=== PATIENT | female | born 1995 | race Caucasian/White ===

== ENCOUNTER → 2018-11-11 | Outpatient (CLI) | LOC: LABNPT 16:11 | PROVIDERS: ATTEND Obstetrics & Gynecology | DX: O28.8 Other abnormal findings on antenatal screening of mother (principal); Z3A.00 Weeks of gestation of pregnancy not specified | CPT/HCPCS: 82570; 84156 ==

== ENCOUNTER 2018-11-21 08:16 | Inpatient (IN) | payer MEDICAID ==
[2018-11-21] VITALS (54 sets, daily range): BP systolic 98–143; BP diastolic 55–86
[~2018-11-21] VITALS: Ht 172.7 cm; Wt 127.0 kg
--- NOTE | 2018-11-21 08:16 | NUR ---
TANYA FULTON presented to unit via AMBULATORY from HOME, accompanied by VISITOR FOR INDUCTION OF LABOR. TANYA FULTON weighed, gowned, voided, and to bed. EFHM and TOCO applied, VS taken. TANYA FULTON oriented to bed controls, call light, TV, heat, and A/C controls.
[2018-11-21] MEDS ORDERED: AMPICILLIN FOR IV USE 2,000 MG in WATER (STERILE) FOR INJECTION 14.8 ML IV SCH (08:39)
[2018-11-21] MEDS ORDERED: D5 LR IV SOLUTION 1,000 ML IV ONE (08:44)
[2018-11-21] MEDS ORDERED: AMPICILLIN FOR IV USE 2,000 MG VIAL ONE (08:44)
[2018-11-21] MEDS ORDERED: WATER (STERILE) FOR INJECTION 20 ML ONE (08:45)
[2018-11-21] MEDS: D5 LR IV SOLUTION 1,000 ML IV SCH ×2 (09:00→16:19)
[2018-11-21 09:35] LABS: BASOPHILS % (AUTO) 0 % (0-10); EOSINOPHILS # (AUTO) 0.1 10^3/uL (0.0-0.3); EOSINOPHILS % (AUTO) 2 % (0-10); HEMATOCRIT 31 % (35-52); HEMOGLOBIN 9.4 G/DL (11.5-16.0); LYMPHOCYTES # (AUTO) 1.4 X 10^3 (1.0-4.0); LYMPHOCYTES % (AUTO) 18 % (12-44); MEAN CORPUSCULAR HEMOGLOBIN 23 PG (25-34); MEAN CORPUSCULAR HGB CONC 30 G/DL (32-36); MEAN CORPUSCULAR VOLUME 77 FL (80-99); MEAN PLATELET VOLUME 9.5 FL (7.4-10.4); MONOCYTES # (AUTO) 0.9 X 10^3 (0.0-1.0); MONOCYTES % (AUTO) 11 % (0-12); NEUTROPHILS # (AUTO) 5.6 X 10^3 (1.8-7.8); NEUTROPHILS % (AUTO) 70 % (42-75); PLATELET COUNT 438 10^3/uL (130-400); RED CELL DISTRIBUTION WIDTH 14.9 % (10.0-14.5); WHITE BLOOD COUNT 8.1 10^3/uL (4.3-11.0)
[2018-11-21] MEDS ORDERED: OXYTOCIN/NORMAL SALINE 500 ML IV SCH ×2 (12:17→21:14)
[2018-11-21] MEDS ORDERED: OXYTOCIN/NORMAL SALINE 500 ML IV ONE (12:19)
--- NOTE | 2018-11-21 12:20 | History & Physical ---
History and Physical Date Seen by Provider: Nov 21, 2018 Time Seen by Provider: 12:18 This patient is a 22-year-old white female who transferred her care to [place] in the second trimester . She is admitted now for induction at 39+ weeks' gestation with LGA fetus expected over 9 pounds and polyhydramnios with last GERSON yesterday at 276. Her GBS culture after 35 weeks gestation was positive. She will be on prophylactic antibiotics during the labor she denies rupture membranes or bleeding. She's had no other problems with this . Allergies are none Medications are vitamins Medical, social and surgical histories are per the antepartum record HEENT exam is normal Neck is supple no lymphadenopathy no thyromegaly Abdomen is gravid soft nontender nondistended Extremities show no clubbing cyanosis. There is no Homans sign. Pelvic exam is pending Assessment and plan 39+ week gestation in patient with GBS positive culture admitted for induction of labor history of polyhydramnios Allergies and Home Medications Allergies Coded Allergies: No Known Drug Allergies (Unverified , 11/21/18) Home Medications No Active Prescriptions or Reported Meds Patient Home Medication List Home Medication List Reviewed: Yes Clinical Quality Measures DVT/VTE Risk/Contraindication: Risk Factor Score Per Nursin RFS Level Per Nursing on Admit: 3=High JUAN J COHN MD Nov 21, 2018 12:20
[2018-11-21] MEDS ORDERED: IBUP-1780 PO (12:22)
[2018-11-21] MEDS ORDERED: OXYC1TAB87 PO (12:22)
[2018-11-21] MEDS ORDERED: DOCU-143 PO (12:22)
--- NOTE | 2018-11-21 12:22 | Discharge Instructions ---
Discharge Instructions Discharge Medications New, Converted or Re-Newed RX: RX on Chart Patient Instructions Return to The Hospital For: As directed Activity & Diet Discharge Diet: No Restrictions Activity as Tolerated: No Orders-Post D/C & Referrals Follow Up Appt: Call to make follow up appt. for patient in 4 weeks. Activity Per routine post vaginal delivery instructions. Please call in RX to patient pharmacy. Diet as tolerated Patient may shower or tub bathe as desired. JUAN J COHN MD Nov 21, 2018 12:22
[2018-11-21] MEDS: AMPICILLIN FOR IV USE 1,000 MG in WATER (STERILE) FOR INJECTION 7.4 ML IV SCH ×2 (13:26→17:44)
[2018-11-21] MEDS ORDERED: SUFENTA 0.6MCG/ML BUPIVA 0.125 100 ML ONE (15:09)
--- NOTE | 2018-11-21 15:31 | NUR ---
Bailey WAHL CRNA here for epidural placement. Procedure explained, consent reviewed and signed by anesthesia. Questions answered to patient's satisfaction. Time out taken to verify correct patient/procedure. 1534 Patient up to side of bed, assisted into sitting position. 1538 Betadine prep done x3 and sterile drape applied. 1539 Local done, see anesthesia record. 1542 Test dose given, see anesthesia record for drug and dosage. 1542 Test dose given, see anesthesia record for drug and dosage.Epidural catheter secured in place. Epidural placement complete. Assisted back into bed, monitors adjusted. Epidural dosed, see anesthesia record. Epidural of Sufenta/Bupvicaine @ cc/hr stated per pump. Patient tolerated procedure well. Addendum: 11/21/18 at 1708 by SWATI VARNER RN 1545 TEST DOSE 1549 TEST DOSE #2. --- + RESULT. CATHETER REMOVED PER Bailey WAHL CRNA
[2018-11-21] MEDS ORDERED: LIDOCAINE PF 2% 5 ML (XYLOCAINE) VIAL ONE (15:34)
[2018-11-21] MEDS ORDERED: BUPIVACAINE 0.25% 30 ML (SENSORCAINE) VIAL ONE (15:34)
[2018-11-21] MEDS ORDERED: fentaNYL INJECTION 100 MCG/2 ML AMP ONE (15:34)
--- NOTE | 2018-11-21 15:51 | NUR ---
EPIDURAL #2. 1551 Betadine prep done x3 and sterile drape applied. 1553 Local done, see anesthesia record. 1557 Test dose given, see anesthesia record for drug and dosage. 1559 Test dose #2 given, see anesthesia record for drug and dosage. Epidural catheter secured in place. Epidural placement complete. 1600 Assisted back into bed, monitors adjusted. Epidural dosed, see anesthesia record. Epidural of Sufenta/Bupvicaine @12cc/hr stated per pump. Patient tolerated procedure well.
[2018-11-21] MEDS ORDERED: LACTATED RINGERS 1,000 ML IV ONE ×2 (16:10)
[2018-11-21] MEDS ORDERED: ONDANSETRON 4 MG/2 ML (SDV) Z0FRAN IV PRN (16:15)
[2018-11-21] MEDS ORDERED: EPIDURAL (SUFENTA 0.6MCG/ML BUPIVA 0.125%) 100 ML BAG EPI PRN (16:15)
[2018-11-21] MEDS ORDERED: NALOXONE 0.4 MG/ML 1 ML (NARCAN) VIAL IV PRN (16:15)
--- NOTE | 2018-11-21 19:00 | NUR ---
REFER TO LABOR FLOW SHEET.
[2018-11-21] MEDS ORDERED: LIDOCAINE/EPI 2% 1:200,00 (XYLOCAINE) 10 ML VIAL ONE (20:08)
[2018-11-21] MEDS ORDERED: TETANUS,DIPTH,PERTUSS P/F (BOOSTRIX) 0.5 ML VIAL IM ONE (21:15)
[2018-11-21] MEDS ORDERED: ONDANSETRON 4 MG/2 ML (SDV) Z0FRAN IVP PRN (21:15)
[2018-11-21] MEDS ORDERED: BENZOCAINE/MENTHOL (DERMOPLAST) 56 ML CAN TP PRN (21:15)
[2018-11-21] MEDS ORDERED: MEASLES,MUMPS,RUBELLA 1 EA INJ SC ONE (21:15)
[2018-11-21] MEDS ORDERED: KETOROLAC 30 MG/ML VIAL ONE (21:23)
[2018-11-21] MEDS: KETOROLAC 30 MG/ML VIAL IVP PRN (21:25)
--- NOTE | 2018-11-21 22:05 | NUR ---
Pt. ambulated to bathroom with standby assist without difficulty. Positive void noted. Will move to PP room 309 soon.
--- NOTE | 2018-11-21 22:15 | NUR ---
Pt. transferred to room 309 via wheelchair, accompanied by S.O. and infant. Pt. oriented to room, room service, call light, and thermostat. PP info folder given and explain. Fresh ice water provided. No questions or concerns voiced at this time. Call light within reach.
[2018-11-21] MEDS: oxyCODONE/APAP 5/325MG (PERCOCET 5) TABLET PO PRN (23:14)
[2018-11-21] MEDS: CATHETER FLUSH 10 ML SYR IV SCH ×2 (23:15→23:31)
[2018-11-21] MEDS ORDERED: LIDOCAINE/EPI 2% 1:200,00 (XYLOCAINE) 10 ML VIAL INJ ONE (23:30)
--- NOTE | 2018-11-22 03:36 | OPERATIVE REPORT ---
DATE OF SERVICE: 11/21/2018 DELIVERY NOTE The patient delivered by a term spontaneous vaginal delivery a viable male infant with Apgars of 8 and 9 at 1 and 5 minutes respectively, weight of 9 pounds and 2 ounces, time of 2041. Cord blood pH that is pending. The infant delivered over a first-degree perineal and first-degree right labia majora laceration under epidural analgesia augmented with local in the perineum. The infant was bulb suctioned on delivery of the head and again on completion of delivery. Umbilical cord when relatively pulseless was doubly clamped, father cut the cord, the baby was passed to mom's abdomen. The placenta delivered promptly spontaneously Barron. It was normal with a 3-vessel cord. The cervix, vagina, rectum, and perineum were examined and found intact, except for the two defects noted above. Both those defects were repaired with a single suture of 3-0 Vicryl Rapide in the usual manner to good reapproximation and good hemostasis. The patient tolerated the delivery and the repair well and remained in the LDR for recovery. The baby remained with the mom. Sponge and needle counts were correct. Estimated blood loss was around 250 mL for the delivery. Job ID: [id number] DocumentID: [id number] Dictated Date: 11/21/2018 21:04:14 Prosthetic Assistant Date: 11/22/2018 03:35:10 Dictated By: JUAN J COHN MD
[2018-11-22 03:40] VITALS: BP 119/70
[2018-11-22] MEDS: KETOROLAC 30 MG/ML VIAL IVP PRN (03:45)
[2018-11-22] MEDS: CATHETER FLUSH 10 ML SYR IV SCH (06:15)
[2018-11-22 08:19] VITALS: BP 110/67
[2018-11-22] MEDS: IBUPROFEN 800 MG (MOTRIN) TAB PO SCH ×3 (08:20→20:07)
[2018-11-22] MEDS: DOCUSATE SODIUM 100 MG (COLACE) CAP PO SCH ×2 (08:20→20:07)
[2018-11-22] MEDS: oxyCODONE/APAP 5/325MG (PERCOCET 5) TABLET PO PRN ×2 (08:22→12:22)
--- NOTE | 2018-11-22 09:15 | NUR ---
Dr Russo to see patient and review plan of care.
--- NOTE | 2018-11-22 09:26 | Progress Note ---
Standard Progress Note Progress Notes/Assess & Plan Date Seen by a Provider: Nov 22, 2018 Time Seen by a Provider: 09:26 Progress/Assessment & Plan This patient is without complaint. She is ablating, voiding, tolerating oral intake well has good pain control. Vital Signs 11/22/18 08:19 Temp 36.7 Pulse 91 Resp 16 B/P (MAP) 110/67 (81) Pulse Ox 97 O2 Delivery Room Air Vital signs are stable. Patient is afebrile. The abdomen is benign. The fundus is firm below the umbilicus and nontender. Extreme show no clubbing cyanosis. There is no Homans sign. Assessment and plan post day number 1 status post term spontaneous vaginal delivery at 39 weeks gestation. Patient doing well will have routine convalescence. JUAN J COHN MD Nov 22, 2018 09:26
[2018-11-22 12:19] VITALS: BP 119/83
--- NOTE | 2018-11-22 16:29 | Anesthesia-Regional Post-Op ---
Regional Patient Condition Mental Status: Alert, Oriented x3 Circulation: Same as Pre-Op Headache: Absent Sensation: Full Recovery Motor Block: Absent Post Op Complications Complications None Follow Up Care/Instructions Patient Instructions None needed. Anesthesia/Patient Condition Patient is doing well, no complaints, stable vital signs, no apparent adverse anesthesia problems. No complications reported per nursing. DEJON ULLOA CRNA Nov 22, 2018 16:29
[2018-11-22 17:10] VITALS: BP 120/64
[2018-11-22 20:08] VITALS: BP 120/69
[2018-11-23 02:36] VITALS: BP 109/59
[2018-11-23] MEDS: IBUPROFEN 800 MG (MOTRIN) TAB PO SCH ×2 (02:36→09:34)
--- NOTE | 2018-11-23 09:19 | NUR ---
No rubella drawn, pt reports she "will not take rubella vaccine."
--- NOTE | 2018-11-23 09:20 | NUR ---
Dr Blackwell to see patient.
[2018-11-23 09:33] VITALS: BP 108/71
--- NOTE | 2018-11-23 09:33 | Progress Note ---
Standard Progress Note Progress Notes/Assess & Plan Date Seen by a Provider: Nov 23, 2018 Time Seen by a Provider: 09:32 Progress/Assessment & Plan This patient is without complaint. She is ablating, voiding, tolerating oral intake well has good pain control. Vital Signs 11/22/18 08:19 Temp 36.7 Pulse 91 Resp 16 B/P (MAP) 110/67 (81) Pulse Ox 97 O2 Delivery Room Air Vital signs are stable. Patient is afebrile. The abdomen is benign. The fundus is firm below the umbilicus and nontender. Extreme show no clubbing cyanosis. There is no Homans sign. Assessment and plan post day number 1 status post term spontaneous vaginal delivery at 39 weeks gestation. Patient doing well will have routine convalescence. November 23, 2018 Patient without complaint. She is ambulating, voiding, tolerating oral intake well has good pain control. Patient is requesting discharge home. Vital Signs Date Time Temp Pulse Resp B/P (MAP) Pulse Ox O2 Delivery O2 Flow Rate FiO2 11/23/18 02:36 36.5 71 16 109/59 (76) 97 Room Air 11/22/18 20:08 36.7 76 16 120/69 (86) 99 Room Air 11/22/18 17:10 36.8 82 16 120/64 (82) 99 Room Air 11/22/18 12:19 36.5 79 16 119/83 (95) 99 Room Air Vital signs are stable. Patient is afebrile. The fundus is firm below the umbilicus nontender. Extremities show no clubbing cyanosis. There is no Homans sign. Assessment and plan day number 2 status post term spontaneous vaginal delivery at 39+ weeks' gestation. Plan is for discharge home with follow-up in clinic Final Diagnosis 39 week spontaneous vaginal delivery JUAN J COHN MD Nov 23, 2018 09:33
[2018-11-23] MEDS: DOCUSATE SODIUM 100 MG (COLACE) CAP PO SCH (09:35)
--- NOTE | 2018-11-23 13:20 | NUR ---
Discharge instructions explained, signed and copy to patient. pt verbalized understanding of instructions and denied questions. prescription given and explained along with other medications called in to pharmacy. pt verbalized understanding of medications.
--- NOTE | 2018-11-23 13:30 | NUR ---
prescriptions called to [facility]
--- NOTE | 2018-11-23 13:45 | NUR ---
Discharged to home. Ambulates self downstairs accompanied by staff. To private vehicle with belongings in hand.
== END 2018-11-23 13:45 | disposition home or self-care (01) | DRG 807 ==
LOC: LDRP 08:16
PROVIDERS: ADMIT Obstetrics & Gynecology; ATTEND Obstetrics & Gynecology
PROC: 10E0XZZ Delivery of Products of Conception, External Approach (ICD-10-PCS; principal; 2018-11-22)
PROC: 0HQ9XZZ Repair Perineum Skin, External Approach (ICD-10-PCS; 2018-11-22)
PROC: 0UQMXZZ Repair Vulva, External Approach (ICD-10-PCS; 2018-11-22)
DX: O40.3XX0 Polyhydramnios, third trimester, not applicable or unspecified (principal); Z37.0 Single live birth; O36.63X0 Maternal care for excessive fetal growth, third trimester, not applicable or unspecified; O99.824 Streptococcus B carrier state complicating childbirth; O70.0 First degree perineal laceration during delivery; Z3A.39 39 weeks gestation of pregnancy
CPT/HCPCS: 36415; 85025; 86850; 86900; 86901

== ENCOUNTER 2020-07-07 07:10 | Emergency (ER) | payer MEDICAID ==
[~2020-07-07] VITALS: Ht 172.7 cm; Wt 113.6 kg
[~2020-07-07 07:10] MED LIST: DOCU-143 PO; IBUP-1780 PO; OXYC1TAB87 PO
[2020-07-07 07:20] VITALS: BP 133/90
[2020-07-07] MEDS ORDERED: SULF1TAB35 PO (07:54)
--- NOTE | 2020-07-07 07:55 | ED General ---
General Chief Complaint: General Problems/Pain Stated Complaint: POSSIBLE INFECTION FROM STITCHES VAGINAL Nursing Triage Note: AMB TO ED REPORTS HAD VAG DELIVERY 1 YEAR AGO. FEELS LIKE ONE OF THE SUTURES DID NOT DISOLVE. AREA NOW RED OR SWOLLEN NEVER HAD FOLLOW UP . Nursing Sepsis Screen: No Definite Risk Source of Information: Patient Exam Limitations: No Limitations History of Present Illness Date Seen by Provider: July 07, 2020 Time Seen by Provider: 07:18 Initial Comments This 25-year-old young lady presents to the emergency room with complaints of a firm swelling at the site of perineal repair from her vaginal delivery in November. Because of reasons not clearly explained, she did not follow-up after her delivery or have this area evaluated by the delivering physician. Since the healing of her sutured perineal tear, she has noticed a firm lump in that area. Over the last month it has grown rapidly and has become extremely painful. She has pain with movement, palpation, and intercourse. She felt a bit feverish at work recently and noted a temperature of 99.7. She has not noticed any drainage. On exam today she appears to have a cystic lesion that is now drai zacarias a foul purulent material with a scant amount of blood. Allergies and Home Medications Allergies Coded Allergies: No Known Drug Allergies (Unverified , 11/21/18) Home Medications Docusate Sodium 100 Mg Capsule, 100 MG PO BID Prescribed by: JUAN J RAMIREZ on 11/21/18 1222 Ibuprofen 800 Mg Tablet, 800 MG PO Q6H PRN for PAIN Prescribed by: JUAN J RAMIREZ on 11/21/18 1222 Oxycodone HCl/Acetaminophen 1 Each Tablet, 1 TAB PO Q4H Prescribed by: JUAN J RAMIREZ on 11/21/18 1222 Sulfamethoxazole/Trimethoprim 1 Each Tablet, 1 EACH PO BID Prescribed by: MRACE JANG on 07/07/20 3658 Patient Home Medication List Home Medication List Reviewed: Yes Review of Systems Review of Systems Constitutional: see HPI EENTM: no symptoms reported Respiratory: no symptoms reported Gastrointestinal: no symptoms reported Genitourinary: see HPI : No Musculoskeletal: no symptoms reported Skin: see HPI Psychiatric/Neurological: No Symptoms Reported Hematologic/Lymphatic: No Symptoms Reported Immunological/Allergic: no symptoms reported Past Gangmaf-Ijifuc-Xdmrra Hx Past Med/Social Hx: Reviewed Nursing Past Med/Soc Hx Patient Social History Alcohol Use: Denies Use Drug of Choice: MARIJUANA- MIDDLE OF Smoking Status: Never a Smoker Recent Infectious Disease Expo: No Recent Hopitalizations: No Immunizations Up To Date PED Vaccines UTD: Yes Seasonal Allergies Seasonal Allergies: Yes Past Medical History Surgeries: No Respiratory: No Cardiac: No Neurological: No : No Female Reproductive Disorders: Denies Sexually Transmitted Disease: Yes (CHLAMYDIA - 2018) HIV/AIDS: No Genitourinary: No Gastrointestinal: Yes (SONO SHOWED GALL STONES - NOT CAUSING ISSUES) Musculoskeletal: Yes (BULGING DISC) Chronic Back Pain Endocrine: No HEENT: No Cancer: No Psychosocial: No Integumentary: No 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 Physical Exam Vital Signs Vital Signs - First Documented 07/07/20 07:20 Temp 36.8 Pulse 90 Resp 18 B/P (MAP) 133/90 (104) Pulse Ox 98 O2 Delivery Room Air Capillary Refill : Less Than 3 Seconds Height, Weight, BMI Height: '" Weight: lbs. oz. kg; 38.00 BMI Method: General Appearance: No Apparent Distress, WD/WN HEENT: PERRL/EOMI, Normal ENT Inspection Neck: Normal Inspection Respiratory: Lungs Clear, Normal Breath Sounds, No Respiratory Distress Cardiovascular: Regular Rate, Rhythm, No Edema, No Murmur Gastrointestinal: Non Tender, Soft Genital/Rectal: Other (Draining cystic lesion on the right side of the verge of the perineum and vaginal introitus. The pore expressed a large amount of purulent material and sebaceous material was expressed) Extremity: Normal Inspection, No Pedal Edema Neurologic/Psychiatric: Alert, Oriented x3, No Motor/Sensory Deficits, Normal Mood/Affect Skin: Warm/Dry Progress/Results/Core Measures Suspected Sepsis Recent Fever Within 48 Hours: No Infection Criteria Present: None New/Unexplained Altered Menta: No Sepsis Screen: No Definite Risk SIRS Temperature: Pulse: 90 Respiratory Rate: 18 Blood Pressure 133 /90 Mean: 104 Results/Orders Vital Signs/I&O 07/07/20 07:20 Temp 36.8 Pulse 90 Resp 18 B/P (MAP) 133/90 (104) Pulse Ox 98 O2 Delivery Room Air Capillary Refill : Less Than 3 Seconds Blood Pressure Mean: 104 Progress Note : Progress Note By the time of my exam the cystic lesion was starting to drain. It was expressed manually which yielded a large amount of sebaceous material and purule nt drainage. Culture was obtained. Patient tolerated the procedure well with some pain. I contacted Dr. Encarnacion to inform her of the situation and to suggest perhaps an expedited appointment since her current appointment is in August. Patient reported exposure to MRSA from a recent boyfriend. Bactrim was prescribed. She was given a bottle of chlorhexidine soap for sitz baths. Vag inal rest for 2 weeks was recommended. Departure Impression Primary Impression: Vaginal inclusion cyst Additional Impression: Perineal abscess Disposition: HOME, SELF-CARE Condition: Improved Departure-Patient Inst. Referrals: NO,LOCAL PHYSICIAN (PCP/Family) Primary Care Physician Patient Instructions: Skin Abscess Add. Discharge Instructions: Perform sitz bath's for 15 to 30 minutes 2 or 3 times a day for the next few days to encourage drainage. Apply a few squirts of the antibacterial soap provided in the water. Complete your antibiotics as prescribed. Expect the cyst to continue draining for at least a couple of days. You may take Tylenol (acetaminophen) and/or ibuprofen for pain. Follow-up with Dr. Encarnacion soon as possible. Excision of the inclusion cyst may be necessary to prevent recurrence of infection. Do not insert anything vaginally including tampons and intercourse for at least 2 weeks. Call with questions or concerns. Return to the ER if you have worsening symptoms or develop new symptoms such as fever. All discharge instructions reviewed with patient and/or family. Voiced understanding. Scripts Sulfamethoxazole/Trimethoprim (Bactrim Ds Tablet) 1 Each Tablet 1 EACH PO BID, #14 TAB Prov: MARCE HAINES MD 07/07/20 Copy Copies To 1: RACHNA ENCARNACION JOSHUA T MD July 07, 2020 07:55
== END 2020-07-07 07:59 | disposition home or self-care (01) ==
LOC: EDUNIT# 07:10 → ER 07:12
DX: K61.0 Anal abscess (principal); N89.8 Other specified noninflammatory disorders of vagina; G89.29 Other chronic pain; M54.9 Dorsalgia, unspecified; Z79.891 Long term (current) use of opiate analgesic; Z79.1 Long term (current) use of non-steroidal anti-inflammatories (NSAID)
CPT/HCPCS: 87070; 87205; 99284

== ENCOUNTER 2021-03-23 12:37 | Emergency (ER) | payer MEDICAID ==
[~2021-03-23] VITALS: Ht 147 cm; Wt 124.0 kg
[~2021-03-23 12:37] MED LIST changes: +SULF1TAB38 PO
[2021-03-23 12:49] VITALS: BP 153/81
[2021-03-23 13:11] LABS: BILIRUBIN,URINE NEGATIVE (NEGATIVE); CLARITY,URINE CLEAR; COLOR,URINE YELLOW; GLUCOSE, URINE (UA) NEGATIVE (NEGATIVE); KETONES,URINE NEGATIVE (NEGATIVE); LEUKOCYTE ESTERASE ,URINE TRACE (NEGATIVE); NITRITE,URINE NEGATIVE (NEGATIVE); PROTEIN,URINE NEGATIVE (NEGATIVE)
[2021-03-23 13:18] LABS: BACTERIA,URINE TRACE /HPF; WBC,URINE 0-2 /HPF
[2021-03-23 13:21] LABS: BASOPHILS % (AUTO) 0 % (0-10); EOSINOPHILS # (AUTO) 0.2 10^3/uL (0.0-0.3); EOSINOPHILS % (AUTO) 2 % (0-10); HEMATOCRIT 41 % (35-52); HEMOGLOBIN 14.1 g/dL (11.5-16.0); LYMPHOCYTES # (AUTO) 2.2 10^3/uL (1.0-4.0); LYMPHOCYTES % (AUTO) 25 % (12-44); MEAN CORPUSCULAR HEMOGLOBIN 29 pg (25-34); MEAN CORPUSCULAR HGB CONC 35 g/dL (32-36); MEAN CORPUSCULAR VOLUME 85 fL (80-99); MEAN PLATELET VOLUME 9.1 fL (9.0-12.2); MONOCYTES # (AUTO) 0.7 10^3/uL (0.0-1.0); MONOCYTES % (AUTO) 8 % (0-12); NEUTROPHILS # (AUTO) 5.6 10^3/uL (1.8-7.8); NEUTROPHILS % (AUTO) 64 % (42-75); PLATELET COUNT 301 10^3/uL (130-400); WHITE BLOOD COUNT 8.7 10^3/uL (4.3-11.0)
--- NOTE | 2021-03-23 13:48 | Diagnostic Imaging Report ---
PROCEDURE: US OB SINGLE FETUS <14 WKS. TECHNIQUE: Multiple real-time grayscale images were obtained over the gravid uterus in various projections. INDICATION: Pelvic pain and spotting. There is a single live IUP measuring approximately 6 weeks 6 days gestational age. heart rate was recorded at 138 bpm. There appears to be a subchorionic hemorrhage along the superior aspect of the gestational sac measuring 1.5 x 1.1 x 0.4 cm. The adnexa are unremarkable. No adnexal mass or free fluid is seen. IMPRESSION: Single live IUP 6 weeks 6 days gestational age with estimated date of confinement sonographically 11/10/2021. Note is made of a small subchorionic hemorrhage. Dictated by: Dictated on workstation # [id number]
[2021-03-23] MEDS ORDERED: ONDA4TAB11 PO (14:23)
--- NOTE | 2021-03-23 14:23 | ED GU-Female ---
General Chief Complaint: Abdominal/GI Problems Stated Complaint: LRQ PAIN Nursing Triage Note: Patient has presented to ER with cc of lower right sided abd pain, some nausea, and spotting for the last 2 days. Patient reports being 8 weeks . Source: patient Exam Limitations: no limitations History of Present Illness Date Seen by Provider: Mar 23, 2021 Time Seen by Provider: 12:45 Initial Comments Patient is a 26-year-old, G3, P2, Ab1 estimated 7-week gestation female who presents with right lower pelvic cramping, and post coital vaginal spotting since yesterday, and morning sickness. Patient had a positive home test 6 weeks ago after missed menstrual period. She denies flank pain, chills, sweats, dysuria. She denies heavy vaginal bleeding. She is not dizzy or lightheaded. No other acute symptoms or complaints. Patient has not yet established with an OB. Timing/Duration: just prior to arrival Severity/Quality: mild Location: other Radiation: other Activities at Onset: other Sexual [place] History: other Modifying Factors: Improves With Other Associated Symptoms: other Allergies and Home Medications Allergies Coded Allergies: No Known Drug Allergies (Unverified , 11/21/18) Patient Home Medication List Home Medication List Reviewed: Yes Docusate Sodium (Colace) 100 Mg Capsule, 100 MG PO BID Prescribed by: JUAN J RAMIREZ on 11/21/18 1222 Ibuprofen (Ibuprofen) 800 Mg Tablet, 800 MG PO Q6H PRN for PAIN Prescribed by: JUAN J RAMIREZ on 11/21/18 1222 Oxycodone HCl/Acetaminophen (Percocet 5-325 mg Tablet) 1 Each Tablet, 1 TAB PO Q4H Prescribed by: JUAN J RAMIREZ on 11/21/18 1222 Sulfamethoxazole/Trimethoprim (Bactrim Ds Tablet) 1 Each Tablet, 1 EACH PO BID Prescribed by: MARCE JANG on 07/07/20 3292 Review of Systems Review of Systems Constitutional: see HPI EENTM: see HPI Respiratory: see HPI Cardiovascular: see HPI Gastrointestinal: see HPI Genitourinary: see HPI Musculoskeletal: see HPI Skin: see HPI Psychiatric/Neurological: See HPI Endocrine: See HPI Hematologic/Lymphatic: See HPI All Other Systemes Reviewed Negative Unless Noted: Yes Past Vnylxah-Towqte-Ntjggs Hx Patient Social History Tobacco Use?: Yes Use of E-Cig and/or Vaping dev: Yes Substance use?: No Alcohol Use?: No Immunizations Up To Date PED Vaccines UTD: Yes Seasonal Allergies Seasonal Allergies: Yes Past Medical History Surgeries: No Respiratory: No Cardiac: No Neurological: No Female Reproductive Disorders: Denies Sexually Transmitted Disease: Yes (CHLAMYDIA - 2018) HIV/AIDS: No Genitourinary: No Gastrointestinal: Yes (SONO SHOWED GALL STONES - NOT CAUSING ISSUES) Musculoskeletal: Yes (BULGING DISC) Chronic Back Pain Endocrine: No HEENT: No Cancer: No Psychosocial: No Integumentary: No 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 Physical Exam Vital Signs Vital Signs - First Documented 03/23/21 12:49 Temp 36.3 Pulse 94 Resp 16 B/P (MAP) 153/81 (105) Pulse Ox 97 O2 Delivery Room Air Capillary Refill : Height, Weight, BMI Height: '" Weight: lbs. oz. kg; 57.00 BMI Method: General Appearance: WD/WN, no apparent distress HEENT: PERRL/EOMI, normal ENT inspection Neck: non-tender, supple Cardiovascular: normal peripheral pulses, regular rate, rhythm Respiratory: chest non-tender, lungs clear Gastrointestinal: non tender, soft Pelvic: vaginal bleeding Neurologic/Psychiatric: alert, oriented x 3 Focused Exam Sepsis Stage: Ruled Out Progress/Results/Core Measures Suspected Sepsis SIRS Temperature: Pulse: 94 Respiratory Rate: 16 Laboratory Tests 03/23/21 13:04: White Blood Count 8.7 Blood Pressure 153 /81 Mean: 105 Laboratory Tests 03/23/21 13:04: Platelet Count 301 Results/Orders Lab Results Laboratory Tests Test 03/23/21 12:40 03/23/21 13:04 Range/Units Urine Color YELLOW Urine Clarity CLEAR Urine pH 6.0 5-9 Urine Specific [place] 1.025 H 1.016-1.022 Urine Protein NEGATIVE NEGATIVE Urine Glucose (UA) NEGATIVE NEGATIVE Urine Ketones NEGATIVE NEGATIVE Urine Nitrite NEGATIVE NEGATIVE Urine Bilirubin NEGATIVE NEGATIVE Urine Urobilinogen 0.2 < = 1.0 MG/DL Urine Leukocyte Esterase TRACE H NEGATIVE Urine RBC (Auto) TRACE-I H NEGATIVE Urine RBC NONE /HPF Urine WBC 0-2 /HPF Urine Squamous Epithelial Cells 2-5 /HPF Urine Crystals NONE /LPF Urine Bacteria TRACE /HPF Urine Casts NONE /LPF Urine Mucus SMALL H /LPF Urine Culture Indicated NO White Blood Count 8.7 4.3-11.0 10^3/uL Red Blood Count 4.79 3.80-5.11 10^6/uL Hemoglobin 14.1 11.5-16.0 g/dL Hematocrit 41 35-52 % Mean Corpuscular Volume 85 80-99 fL Mean Corpuscular Hemoglobin 29 25-34 pg Mean Corpuscular Hemoglobin Concent 35 32-36 g/dL Red Cell Distribution Width 13.2 10.0-14.5 % Platelet Count 301 130-400 10^3/uL Mean Platelet Volume 9.1 9.0-12.2 fL Immature Granulocyte % (Auto) 0 % Neutrophils (%) (Auto) 64 42-75 % Lymphocytes (%) (Auto) 25 12-44 % Monocytes (%) (Auto) 8 0-12 % Eosinophils (%) (Auto) 2 0-10 % Basophils (%) (Auto) 0 0-10 % Neutrophils # (Auto) 5.6 1.8-7.8 10^3/uL Lymphocytes # (Auto) 2.2 1.0-4.0 10^3/uL Monocytes # (Auto) 0.7 0.0-1.0 10^3/uL Eosinophils # (Auto) 0.2 0.0-0.3 10^3/uL Basophils # (Auto) 0.0 0.0-0.1 10^3/uL Immature Granulocyte # (Auto) 0.0 0.0-0.1 10^3/uL Human Chorionic Gonadotropin, Quant [id number] H <5 MIU/ML My Orders Orders - BART JHAVERI DO Ua Culture If Indicated (03/23/21 12:59) Urine Bedside (03/23/21 12:59) Hcg,Quantitative (03/23/21 12:59) RH (03/23/21 12:59) Cbc With Automated Diff (03/23/21 12:59) Us Ob Single Fetus<14 [id number] (03/23/21 13:00) Vital Signs/I&O 03/23/21 12:49 Temp 36.3 Pulse 94 Resp 16 B/P (MAP) 153/81 (105) Pulse Ox 97 O2 Delivery Room Air Capillary Refill : Blood Pressure Mean: 105 Departure Communication (Admissions) Ultrasound: Small subchorionic plan hemorrhage viable 6-week IUP gestation Recommendations are watchful waiting pelvic rest and OB follow-up. Will refill home sickness medications. Impression Primary Impression: Subchorionic hemorrhage Additional Impression: Morning sickness Disposition: HOME, SELF-CARE Condition: Stable Departure-Patient Inst. Decision time for Depature: 14:21 Referrals: NO,LOCAL PHYSICIAN (PCP/Family) Primary Care Physician Patient Instructions: Morning Sickness ED, Subchorionic Bleeding Add. Discharge Instructions: You were evaluated in the emergency department and diagnosed with a placental implant hemorrhage. Please rest your pelvis for the next week and take nausea medication as needed for morning sickness. Follow-up with your [facility]ENT as sc heduled. Return to the ED if new or worsening symptoms. All discharge instructions reviewed with patient and/or family. Voiced understanding. Scripts Ondansetron (Ondansetron Odt) 4 Mg Tab.rapdis 4 MG PO Q6H, #10 TAB Prov: BART JHAVERI DO 03/23/21 BART JHAVERI DO Mar 23, 2021 14:23
== END 2021-03-23 14:30 | disposition home or self-care (01) ==
LOC: EDUNIT# 12:37 → ER FS 12:38
DX: O46.91 Antepartum hemorrhage, unspecified, first trimester (principal); O21.8 Other vomiting complicating pregnancy; G89.29 Other chronic pain; M54.9 Dorsalgia, unspecified; Z72.0 Tobacco use; Z3A.01 Less than 8 weeks gestation of pregnancy; Z79.891 Long term (current) use of opiate analgesic
CPT/HCPCS: 36415; 76801; 81000; 84702; 84703; 85025

== ENCOUNTER 2021-03-30 08:09 | Emergency (ER) | payer MEDICAID ==
[~2021-03-30] VITALS: Ht 176 cm; Wt 117.9 kg
[~2021-03-30 08:09] MED LIST changes: +ONDA4TAB11 PO
[2021-03-30 09:03] LABS: BILIRUBIN,URINE NEGATIVE (NEGATIVE); CLARITY,URINE CLOUDY; COLOR,URINE YELLOW; GLUCOSE, URINE (UA) NEGATIVE (NEGATIVE); KETONES,URINE NEGATIVE (NEGATIVE); LEUKOCYTE ESTERASE ,URINE 2+ (NEGATIVE); NITRITE,URINE NEGATIVE (NEGATIVE); PH,URINE 6.5 (5-9); PROTEIN,URINE NEGATIVE (NEGATIVE)
--- NOTE | 2021-03-30 09:03 | ED GU-Female ---
General Chief Complaint: OB < 20 WEEKS Stated Complaint: VAGINAL BLEEDING DURING PREG Nursing Triage Note: Patient presents to the ED with c/o abdominal cramping and vaginal bleeding during . Reports she is 8 weeks gestation. States she was seen in the ED Saturday or Saturday when bleeding started, had an ultrasound and was told that she had a subchorionic hemmorhage and to come back if her bleeding worsened. She reports she is having a moderate amount of bright red vaginal bleeding. Source: patient Exam Limitations: no limitations History of Present Illness Date Seen by Provider: Mar 30, 2021 Time Seen by Provider: 08:16 Initial Comments 26yoF at roughly 8 weeks gestational age coming in due to vaginal bleeding. Has been ongoing for over a week. Going through around 3 pads per day which has been slowly increasing. Having some cramping but no significant amount of pain. She was seen in the emergency department and was diagnosed with a subchorionic hemorrhage, but since the bleeding is still continuing she wanted to know she has completed a miscarriage, and wants to know if she needs a D&C. Denying any chest pain, shortness of breath, significant abdominal pain, nausea, vomiting, diarrhea, fever, chills, dysuria, or any other concerns. She has follow-up with Dr. Reeder she thinks next week. Allergies and Home Medications Allergies Coded Allergies: No Known Drug Allergies (Unverified , 11/21/18) Patient Home Medication List Home Medication List Reviewed: Yes Docusate Sodium (Colace) 100 Mg Capsule, 100 MG PO BID Prescribed by: JUAN J RAMIREZ on 11/21/18 1222 Ibuprofen (Ibuprofen) 800 Mg Tablet, 800 MG PO Q6H PRN for PAIN Prescribed by: JUAN J RAMIREZ on 11/21/18 1222 Nitrofurantoin Monohyd/M-Cryst (Macrobid 100 mg Capsule) 100 Mg Capsule, 1 TAB PO BID Prescribed by: PETE WALKER on 03/30/21 0928 Ondansetron (Ondansetron Odt) 4 Mg Tab.rapdis, 4 MG PO Q6H Prescribed by: BART JHAVERI on 03/23/21 1423 Oxycodone HCl/Acetaminophen (Percocet 5-325 mg Tablet) 1 Each Tablet, 1 TAB PO Q4H Prescribed by: JUAN J RAMIREZ on 11/21/18 1222 Sulfamethoxazole/Trimethoprim (Bactrim Ds Tablet) 1 Each Tablet, 1 EACH PO BID Prescribed by: MARCE JANG on 07/07/20 0754 Review of Systems Review of Systems Constitutional: No chills, No fever EENTM: No blurred vision Respiratory: No cough Cardiovascular: No chest pain Gastrointestinal: No abdominal pain Genitourinary: denies burning : Yes Expected Date of Delivery: Nov 10, 2021 Musculoskeletal: no symptoms reported Skin: no symptoms reported Psychiatric/Neurological: No Symptoms Reported Endocrine: No Symptoms Reported Hematologic/Lymphatic: No Symptoms Reported All Other Systemes Reviewed Negative Unless Noted: Yes Past [id number]-[id number]-[id number] Hx Patient Social History Tobacco Use?: No Use of E-Cig and/or Vaping dev: No Substance use?: No Alcohol Use?: No Pt feels they are or have been: No Immunizations Up To Date PED Vaccines UTD: Yes Influenza Vaccine Up-to-Date: No; Not Current First/Initial COVID19 Vaccinat: Not currently vaccinated Seasonal Allergies Seasonal Allergies: Yes Past Medical History Surgeries: No Respiratory: No Cardiac: No Neurological: No Expected Date of Delivery: Nov 10, 2021 Female Reproductive Disorders: Denies Sexually Transmitted Disease: Yes (CHLAMYDIA - 2018) HIV/AIDS: No Genitourinary: No Gastrointestinal: Yes (SONO SHOWED GALL STONES - NOT CAUSING ISSUES) Musculoskeletal: Yes (BULGING DISC) Chronic Back Pain Endocrine: No HEENT: No Cancer: No Psychosocial: No Integumentary: No 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 Physical Exam Vital Signs Vital Signs - First Documented 03/30/21 08:18 Temp 36.6 Pulse 51 Resp 16 B/P (MAP) 126/64 (84) Pulse Ox 98 O2 Delivery Room Air Capillary Refill : Less Than 3 Seconds Height, Weight, BMI Height: '" Weight: lbs. oz. kg; 38.00 BMI Method: General Appearance: WD/WN, no apparent distress HEENT: PERRL/EOMI, normal ENT inspection, pharynx normal Neck: non-tender, full range of motion, supple, normal inspection Cardiovascular: regular rate, rhythm, no edema, no murmur Respiratory: chest non-tender, lungs clear, normal breath sounds, no respiratory distress, no accessory muscle use Gastrointestinal: normal bowel sounds, non tender, soft; No distended, No guarding, No rebound Back: normal inspection, no CVA tenderness, no vertebral tenderness Extremities: normal range of motion, non-tender, normal inspection, no pedal edema, no calf tenderness, normal capillary refill Neurologic/Psychiatric: no motor/sensory deficits, alert, normal mood/affect Skin: normal color, warm/dry Lymphatic: no adenopathy Progress/Results/Core Measures Suspected Sepsis SIRS Temperature: Pulse: 51 Respiratory Rate: 16 Laboratory Tests 03/30/21 08:50: White Blood Count 8.6 Blood Pressure 126 /64 Mean: 84 Laboratory Tests 03/30/21 08:50: Platelet Count 327 Results/Orders Lab Results Laboratory Tests Test 03/30/21 08:45 03/30/21 08:50 Range/Units Urine Color YELLOW Urine Clarity CLOUDY Urine pH 6.5 5-9 Urine Specific [place] 1.015 L 1.016-1.022 Urine Protein NEGATIVE NEGATIVE Urine Glucose (UA) NEGATIVE NEGATIVE Urine Ketones NEGATIVE NEGATIVE Urine Nitrite NEGATIVE NEGATIVE Urine Bilirubin NEGATIVE NEGATIVE Urine Urobilinogen 0.2 < = 1.0 MG/DL Urine Leukocyte Esterase 2+ H NEGATIVE Urine RBC (Auto) TRACE-I H NEGATIVE Urine RBC RARE /HPF Urine WBC 2-5 /HPF Urine Squamous Epithelial Cells 5-10 /HPF Urine Crystals NONE /LPF Urine Bacteria FEW H /HPF Urine Casts NONE /LPF Urine Mucus SMALL H /LPF Urine Other CLUE CELLS NOTED /HPF Urine Culture Indicated NO White Blood Count 8.6 4.3-11.0 10^3/uL Red Blood Count 4.69 3.80-5.11 10^6/uL Hemoglobin 13.6 11.5-16.0 g/dL Hematocrit 40 35-52 % Mean Corpuscular Volume 85 80-99 fL Mean Corpuscular Hemoglobin 29 25-34 pg Mean Corpuscular Hemoglobin Concent 34 32-36 g/dL Red Cell Distribution Width 12.9 10.0-14.5 % Platelet Count 327 130-400 10^3/uL Mean Platelet Volume 9.0 9.0-12.2 fL Immature Granulocyte % (Auto) 0 % Neutrophils (%) (Auto) 59 42-75 % Lymphocytes (%) (Auto) 27 12-44 % Monocytes (%) (Auto) 9 0-12 % Eosinophils (%) (Auto) 4 0-10 % Basophils (%) (Auto) 1 0-10 % Neutrophils # (Auto) 5.1 1.8-7.8 10^3/uL Lymphocytes # (Auto) 2.3 1.0-4.0 10^3/uL Monocytes # (Auto) 0.8 0.0-1.0 10^3/uL Eosinophils # (Auto) 0.3 0.0-0.3 10^3/uL Basophils # (Auto) 0.1 0.0-0.1 10^3/uL Immature Granulocyte # (Auto) 0.0 0.0-0.1 10^3/uL Human Chorionic Gonadotropin, Quant 11715 H <5 MIU/ML My Orders Orders - PETE WALKER MD Cbc With Automated Diff (03/30/21 08:37) Hcg,Quantitative (03/30/21 08:37) Ua Culture If Indicated (03/30/21 08:37) Vital Signs/I&O 03/30/21 08:18 Temp 36.6 Pulse 51 Resp 16 B/P (MAP) 126/64 (84) Pulse Ox 98 O2 Delivery Room Air Capillary Refill : Less Than 3 Seconds Blood Pressure Mean: 84 Progress Note : Progress Note 26-year-old female with above history coming in due to vaginal bleeding with known of roughly 8 weeks gestation and subchorionic hemorrhage. ABCs were intact and vitals were stable on presentation. Specifically, heart rate is in the 70s and she shows no signs of hemorrhagic shock. Basic labs including CBC and urinalysis sent. BHCG is appropriate today for her gestational age. I reviewed her chart and her blood type is O+ so she will not require RhoGam. I did a [id number] ultrasound and there is still an intrauterine with heart rate of 160. Discussed with the patient that this is still a threatened miscarriage and close follow-up is important. Of note, at the time of leaving, the patient disclosed to me that she has been checking her cervix to see if it is open with her bare hands. She says she is unable to get her fingertip into it. I discussed with her she needs to quit this immediately as the risk for infection and the risk for causing miscarriage is too high. Departure Impression Primary Impression: Threatened miscarriage Additional Impression: Asymptomatic bacteriuria Disposition: 01 HOME, SELF-CARE Condition: Stable Departure-Patient Inst. Decision time for Depature: 09:45 Referrals: NO,LOCAL PHYSICIAN (PCP/Family) Primary Care Physician Patient Instructions: Bleeding in Early ED Add. Discharge Instructions: Please follow-up with Dr. Reeder as scheduled. As long as you are having bl eeding then this falls under the category of a threatened miscarriage. Come back to the ER if you are fully saturating a pad every hour as that is too much bleeding. Take Tylenol for cramping. I sent an antibiotic to your pharmacy for the bacteria that was in your urine which is recommended to treat during . Scripts Nitrofurantoin Monohyd/M-Cryst (Macrobid 100 mg Capsule) 100 Mg Capsule 1 TAB PO BID for 5 Days, #10 CAP Prov: PETE WALKER MD 03/30/21 PETE WALKER MD Mar 30, 2021 09:03
[2021-03-30 09:06] LABS: BASOPHILS # (AUTO) 0.1 10^3/uL (0.0-0.1); BASOPHILS % (AUTO) 1 % (0-10); EOSINOPHILS # (AUTO) 0.3 10^3/uL (0.0-0.3); EOSINOPHILS % (AUTO) 4 % (0-10); HEMATOCRIT 40 % (35-52); HEMOGLOBIN 13.6 g/dL (11.5-16.0); LYMPHOCYTES # (AUTO) 2.3 10^3/uL (1.0-4.0); LYMPHOCYTES % (AUTO) 27 % (12-44); MEAN CORPUSCULAR HEMOGLOBIN 29 pg (25-34); MEAN CORPUSCULAR HGB CONC 34 g/dL (32-36); MEAN CORPUSCULAR VOLUME 85 fL (80-99); MONOCYTES # (AUTO) 0.8 10^3/uL (0.0-1.0); MONOCYTES % (AUTO) 9 % (0-12); NEUTROPHILS # (AUTO) 5.1 10^3/uL (1.8-7.8); NEUTROPHILS % (AUTO) 59 % (42-75); PLATELET COUNT 327 10^3/uL (130-400); WHITE BLOOD COUNT 8.6 10^3/uL (4.3-11.0)
[2021-03-30 09:09] LABS: BACTERIA,URINE FEW /HPF; RBC,URINE RARE /HPF
[2021-03-30 09:10] LABS: URINE OTHER CLUE CELLS NOTED /HPF
[2021-03-30] MEDS ORDERED: NITR-65 PO (09:28)
[2021-03-30 09:53] VITALS: BP 114/62
== END 2021-03-30 09:49 | disposition home or self-care (01) ==
LOC: EDUNIT# 08:09 → ER FS 08:11
DX: O20.0 Threatened abortion (principal); O23.41 Unspecified infection of urinary tract in pregnancy, first trimester; Z3A.08 8 weeks gestation of pregnancy
CPT/HCPCS: 36415; 81000; 84702; 85025

== ENCOUNTER → 2021-06-12 | Outpatient (CLI) | payer MEDICAID ==
[~2021-06-12] MED LIST changes: +NITR-65 PO
== END ==
LOC: LABNPT 13:55
PROVIDERS: ATTEND Obstetrics & Gynecology
DX: Z34.82 Encounter for supervision of other normal pregnancy, second trimester (principal); Z36.86 Encounter for antenatal screening for cervical length
CPT/HCPCS: 82105; 86850; 86900; 86901; 87077; 87088

== ENCOUNTER → 2021-07-21 | Outpatient (CLI) | payer MEDICAID | LOC: LABNPT 13:45 | DX: Z34.92 Encounter for supervision of normal pregnancy, unspecified, second trimester (principal) | CPT/HCPCS: 87491; 87591 ==

== ENCOUNTER → 2021-08-29 | Outpatient (CLI) | payer MEDICAID ==
[2021-08-29 16:52] LABS: BASOPHILS % (AUTO) 0 % (0-10); EOSINOPHILS # (AUTO) 0.2 10^3/uL (0.0-0.3); EOSINOPHILS % (AUTO) 3 % (0-10); HEMATOCRIT 33 % (35-52); HEMOGLOBIN 11.1 g/dL (11.5-16.0); LYMPHOCYTES # (AUTO) 1.6 10^3/uL (1.0-4.0); LYMPHOCYTES % (AUTO) 19 % (12-44); MEAN CORPUSCULAR HEMOGLOBIN 29 pg (25-34); MEAN CORPUSCULAR HGB CONC 34 g/dL (32-36); MEAN CORPUSCULAR VOLUME 85 fL (80-99); MEAN PLATELET VOLUME 9.1 fL (9.0-12.2); MONOCYTES # (AUTO) 0.8 10^3/uL (0.0-1.0); MONOCYTES % (AUTO) 10 % (0-12); NEUTROPHILS # (AUTO) 5.9 10^3/uL (1.8-7.8); NEUTROPHILS % (AUTO) 68 % (42-75); PLATELET COUNT 317 10^3/uL (130-400); WHITE BLOOD COUNT 8.6 10^3/uL (4.3-11.0)
== END ==
LOC: LAB FS 16:31
PROVIDERS: ATTEND Family Medicine
DX: Z34.92 Encounter for supervision of normal pregnancy, unspecified, second trimester (principal)
CPT/HCPCS: 36415; 82950; 85025; 86780

== ENCOUNTER 2021-11-12 10:09 | Outpatient (CLI) | payer MEDICAID ==
[~2021-11-12] VITALS: Ht 175.3 cm; Wt 140.3 kg
[2021-11-12] MEDS ORDERED: D5 LR IV SOLUTION 1,000 ML IV ONE (10:50)
[2021-11-12] MEDS ORDERED: D5 LR IV SOLUTION 1,000 ML IV SCH (11:00)
[2021-11-12 11:25] VITALS: BP 129/81
--- NOTE | 2021-11-13 08:14 | Physician Query-Final Dx ---
,11/13/21 0814: Clinic Account Progress/Dx Physician Query: Please give diagnosis Please include # weeks gestation Date of Service Nov 12, 2021 at 10:09 JUAN J COHN MD 11/13/212001: Clinic Account Progress/Dx DIAGNOSIS: Diagnosis 40 weeks with false labor ,FebNov 13, 2021 08:14 JUAN J COHN MD Nov 13, 2021 20:02
== END 2021-11-12 13:27 | disposition home or self-care (01) ==
LOC: WSo 10:09 → LDRP 10:09 → WSo 13:27
PROVIDERS: ATTEND Obstetrics & Gynecology
DX: O47.1 False labor at or after 37 completed weeks of gestation (principal); Z3A.40 40 weeks gestation of pregnancy
CPT/HCPCS: 36415; 89060; 99214

== ENCOUNTER 2021-11-13 06:24 | Inpatient (IN) | payer MEDICAID ==
[2021-11-13] VITALS (50 sets, daily range): BP systolic 98–151; BP diastolic 53–82
[~2021-11-13] VITALS: Ht 175.3 cm; Wt 140.7 kg
[2021-11-13] MEDS ORDERED: AMPICILLIN FOR IV USE 2,000 MG in NS (IVPB) 50 ML IV SCH (07:45)
[2021-11-13] MEDS ORDERED: MINERAL OIL 30 ML UDC TOP PRN (08:00)
[2021-11-13] MEDS: D5 LR IV SOLUTION 1,000 ML IV SCH ×2 (08:26→16:21)
[2021-11-13 08:37] LABS: BASOPHILS % (AUTO) 0 % (0-10); EOSINOPHILS # (AUTO) 0.3 10^3/uL (0.0-0.3); EOSINOPHILS % (AUTO) 3 % (0-10); HEMATOCRIT 32 % (35-52); HEMOGLOBIN 10.1 g/dL (11.5-16.0); LYMPHOCYTES # (AUTO) 1.5 10^3/uL (1.0-4.0); LYMPHOCYTES % (AUTO) 14 % (12-44); MEAN CORPUSCULAR HEMOGLOBIN 25 pg (25-34); MEAN CORPUSCULAR HGB CONC 31 g/dL (32-36); MEAN CORPUSCULAR VOLUME 79 fL (80-99); MEAN PLATELET VOLUME 9.2 fL (9.0-12.2); MONOCYTES # (AUTO) 0.8 10^3/uL (0.0-1.0); MONOCYTES % (AUTO) 7 % (0-12); NEUTROPHILS # (AUTO) 7.8 10^3/uL (1.8-7.8); NEUTROPHILS % (AUTO) 75 % (42-75); PLATELET COUNT 311 10^3/uL (130-400); WHITE BLOOD COUNT 10.4 10^3/uL (4.3-11.0)
--- NOTE | 2021-11-13 09:00 | History & Physical-OB/GYN ---
TOMMIE SHEEHAN 11/13/21 0859: OB - Chief Complaint & HPI Date/Time Date of Admission: Date of Admission: Nov 13, 2021 at 07:04 Date seen by a Provider: Nov 13, 2021 Time Seen by a Provider: 08:52 Chief Complaint/History OB-Reason for Admission/Chief: Onset of Labor Hx : 4 Hx Para: 2 History of Labs 26 yo female @40.3 with onset of labor GBS+ HIV- VRDL- HbsAg- No vaccinations Other 26 yo female @40.3 with onset of labor Hx of polyhydramnios with previous 2 pregnancies Allergies and Home Medications Allergies Coded Allergies: No Known Drug Allergies (Unverified , 11/21/18) Patient Home Medication List Home Medication List Reviewed: Yes No Active Prescriptions or Reported Meds OB - History Hx of Present Care: Yes Obstetrical Complications: None Medical Complications: None Delivery History Adverse Rxn to Tranfusion: No Patient Past Medical History N/A Immunizations First/Initial COVID19 Vaccine: Not currently vaccinated Hepatitis A: Yes Hepatitis B: Yes OB - Admission Exam Physical Exam Vitals: Vital Signs 11/13/21 06:49 Temp 36.3 Pulse 93 Resp 18 Pulse Ox 97 O2 Delivery Room Air Cervical Dilatation: 6cm Effacement: 75% Heart Rate: 140's Labs Laboratory Tests Test 11/13/21 08:28 Range/Units White Blood Count 10.4 4.3-11.0 10^3/uL Red Blood Count 4.09 3.80-5.11 10^6/uL Hemoglobin 10.1 L 11.5-16.0 g/dL Hematocrit 32 L 35-52 % Mean Corpuscular Volume 79 L 80-99 fL Mean Corpuscular Hemoglobin 25 25-34 pg Mean Corpuscular Hemoglobin Concent 31 L 32-36 g/dL Red Cell Distribution Width 14.2 10.0-14.5 % Platelet Count 311 130-400 10^3/uL Mean Platelet Volume 9.2 9.0-12.2 fL Immature Granulocyte % (Auto) 0 % Neutrophils (%) (Auto) 75 42-75 % Lymphocytes (%) (Auto) 14 12-44 % Monocytes (%) (Auto) 7 0-12 % Eosinophils (%) (Auto) 3 0-10 % Basophils (%) (Auto) 0 0-10 % Neutrophils # (Auto) 7.8 1.8-7.8 10^3/uL Lymphocytes # (Auto) 1.5 1.0-4.0 10^3/uL Monocytes # (Auto) 0.8 0.0-1.0 10^3/uL Eosinophils # (Auto) 0.3 0.0-0.3 10^3/uL Basophils # (Auto) 0.0 0.0-0.1 10^3/uL Immature Granulocyte # (Auto) 0.0 0.0-0.1 10^3/uL OB - Assessment/Plan/Diagnosis Assessment Assessment: active labor Admission Dx 26 yo female @40.3 with onset of labor Admission Status: Inpatient Order (span 2 midnights) Reason for Inpatient Admission: 26 yo female @40.3 with onset of labor Plan Plan: Expectant Management Supervisory-Addendum Brief Verification & Attestation Participated in pt care: history, MDM, physical Personally performed: history, MDM, supervision of care Care discussed with: Medical Student Procedures: n/a Results interpretation: Verified all documentation Took OB H&P DONALDO GOETZ DO 11/13/21 1027: Allergies and Home Medications Allergies Coded Allergies: No Known Drug Allergies (Unverified , 11/21/18) Patient Home Medication List No Active Prescriptions or Reported Meds Supervisory-Addendum Brief Verification & Attestation Verification and Attestation of Medical Student E/M Service A medical student performed and documented this service in my presence. I reviewed and verified all information documented by the medical student and made modifications to such information, when appropriate. I personally performed the physical exam and medical decision making. Donaldo Goetz, Nov 13, 2021,10:27 TOMMIE SHEEHAN Nov 13, 2021 08:59 DONALDO GOETZ DO Nov 13, 2021 10:27
[2021-11-13] MEDS ORDERED: fentaNYL 2 mcg/ml BUPIVA 0.125 0 ML ONE (09:59)
[2021-11-13] MEDS ORDERED: fentaNYL INJ 100 MCG/2 ML AMP ONE (10:27)
[2021-11-13] MEDS ORDERED: LIDOCAINE PF 2% 5 ML (XYLOCAINE) VIAL ONE (10:27)
[2021-11-13] MEDS: AMPICILLIN FOR IV USE 1,000 MG in NS (IVPB) 50 ML IV SCH ×2 (12:59→16:19)
[2021-11-13] MEDS ORDERED: diphenhydrAMINE 50 MG/ML INJ (BENADRYL) IV PRN (13:00)
[2021-11-13] MEDS ORDERED: NALOXONE 0.4 MG/ML 1 ML (NARCAN) VIAL IV PRN ×3 (13:00→17:30)
[2021-11-13] MEDS ORDERED: METOCLOPRAMIDE INJ 10 MG/2 ML (REGLAN) IV PRN (13:00)
[2021-11-13] MEDS ORDERED: ONDANSETRON 4 MG/2 ML (SDV) Z0FRAN IV PRN (13:00)
[2021-11-13] MEDS ORDERED: fentaNYL 2 mcg/ml BUPIVA 0.125 100 ML EPI SCH (13:00)
[2021-11-13] MEDS ORDERED: LACTATED RINGERS 1,000 ML IV SCH (13:00)
[2021-11-13] MEDS ORDERED: CATHETER FLUSH 10 ML SYR IV SCH ×2 (14:00→22:00)
[2021-11-13] MEDS: OXYTOCIN PRE-MIX DRIP 500 ML IV SCH ×2 (15:14→17:32)
[2021-11-13] MEDS ORDERED: LIDOCAINE/EPI 2% 1:200,00 (XYLOCAINE) 10 ML VIAL ONE (17:05)
[2021-11-13] MEDS ORDERED: LIDOCAINE/EPI 2% 1:100,00 (XYLOCAINE) 20 ML VIAL INJ ONE (17:15)
--- NOTE | 2021-11-13 17:25 | OB Labor & Delivery Record ---
L&D History Date of Service Date of Service: Nov 13, 2021 History Expected Date of Delivery: Nov 10, 2021 Gestational Age in Weeks: 40 Hx : 4 Hx Para: 2 Complications Events: Routine care Operative Indications (Cesarea: N/A-Vaginal Delivery Intrapartal Events: None L&D Stage1 Stage One Onset of Labor - Date: Nov 13, 2021 Monitors and Tracing Monitor Mode: Internal Heart Rate: 145 Monitor Decelerations: None Station: -2 Alf Variability: Average (6-10) Short Term Variability: Present Vital Signs VS - Last 72 Hours, by Label 11/13/21 11/13/21 11/13/21 11/13/21 06:49 08:10 08:40 09:10 Temp 36.3 36.3 Pulse 93 100 100 84 Resp 18 20 20 20 B/P (MAP) 126/74 (91) 121/76 (91) 117/60 (79) Pulse Ox 97 O2 Delivery Room Air Room Air Room Air Room Air 11/13/21 11/13/21 11/13/21 11/13/21 09:40 10:40 10:44 10:48 Temp 36.3 Pulse 86 83 85 93 Resp 20 20 20 20 B/P (MAP) 112/67 (82) 119/68 (85) 117/69 (85) 121/71 (88) Pulse Ox 99 98 98 O2 Delivery Room Air Room Air Room Air Room Air 11/13/21 11/13/21 11/13/21 11/13/21 10:52 10:56 11:00 11:04 Pulse 94 88 84 86 Resp 20 20 20 20 B/P (MAP) 117/64 (81) 120/70 (87) 123/71 (88) 120/67 (84) Pulse Ox 98 97 97 98 O2 Delivery Room Air Room Air Room Air Room Air 11/13/21 11/13/21 11/13/21 11/13/21 11:08 11:12 11:16 11:20 Pulse 80 86 77 77 Resp 20 20 20 20 B/P (MAP) 124/65 (84) 101/53 (69) 114/73 (87) 115/61 (79) Pulse Ox 98 98 97 97 O2 Delivery Room Air Room Air Room Air Room Air 11/13/21 11/13/21 11/13/2111/13/22 11:24 11:28 11:32 11:36 Pulse 73 76 99 99 Resp 20 20 20 20 B/P (MAP) 111/67 (82) 103/68 (80) 102/67 (79) 125/65 (85) Pulse Ox 97 97 99 99 O2 Delivery Room Air Room Air Room Air Room Air 11/13/21 11/13/21 11/13/21 11/13/21 11:40 11:44 12:05 12:20 Temp 36.2 Pulse 84 87 79 76 Resp 20 20 20 20 B/P (MAP) 134/71 (92) 133/72 (92) 123/65 (84) 126/71 (89) Pulse Ox 98 98 98 98 O2 Delivery Room Air Room Air Room Air Room Air 11/13/21 11/13/21 11/13/21 11/13/21 12:35 12:50 13:05 13:20 Pulse 85 75 86 93 Resp 20 20 20 20 B/P (MAP) 122/73 (89) 101/53 (69) 121/71 (88) 115/60 (78) Pulse Ox 98 96 97 97 O2 Delivery Room Air Room Air Room Air Room Air 11/13/21 11/13/21 11/13/21 11/13/21 13:35 13:50 14:05 14:20 Temp 36.3 Pulse 94 68 69 81 Resp 18 20 20 20 B/P (MAP) 138/60 (86) 107/59 (75) 104/59 (74) 108/59 (75) Pulse Ox 98 99 97 98 O2 Delivery Room Air Room Air Room Air Room Air 11/13/21 14:35 Pulse 86 Resp 20 B/P (MAP) 114/66 (82) Pulse Ox 96 O2 Delivery Room Air Rupture of Membranes Spontaneous Ruture of Membrane: No Amniotic Membrane Rupture Time: 1133 Amniotic Membrane Fluid Desc.: Meconium Stained Vaginal Bleeding Description: Normal Show Progress/Notes Patient admitted in active labor. GBS pos, received 2 x doses of PCN prior to AROM performed with light meconium. Epidural placed. She progress to complete and + 2 station on 6 mu pitocin. L&D Stage2 Stage Two Stage II Date: Nov 13, 2021 Monitors and Tracing Monitor Mode: Internal Heart Rate: 145 Monitor Decelerations: Variable Alf Variability: Average (6-10) Short Term Variability: Present Position: Right Occiput Anterior Presentation: Vertex Cord Descript/Complications Cord Vessel Description: 3 Vessels Delivery Type Infant Delivery Method: Spontaneous Vaginal Anterior Shoulder: Left Episiotomy/Perineal Laceration Laceraction(s)/Extensions: Yes Episiotomy Description: Vaginal Extension/lac, 1st degree Degree (describe repair) repaired using 3-0 rapide vicyrl suture Condition of Delivery 1 minute Comment: 8 5 minute Comment: 9 Notes live male weight pending Condition of Infant Condition of : Living Exam: No Observed Abnormalities Resuscitation Resuscitation: N/A - Spontaneous Resp L&D Stage3 Stage Three Stage III Date: Nov 13, 2021 Pictocin Pitocin Administration Comment: 30 mu wide open after delivery of placenta Placenta Delivery Placenta Delivery: Spontaneous Delivery Summary Summary Estimated blood loss (mL): 250 Attending at delivery: Donaldo Goetz DO Condition of Delivery Examined: Cervix Examined, Uterus Explored Post Hemorrhage: No Condition of Mother stable Condition of (s) stable DONALDO GOETZ DO Nov 13, 2021 17:25
[2021-11-13] MEDS ORDERED: HYDROcodone/APAP 5 MG/325 MG (LORTAB) TAB PO PRN (17:30)
[2021-11-13] MEDS ORDERED: WITCH HAZEL(TUCKS) 40 EA JAR TOP PRN (17:30)
[2021-11-13] MEDS ORDERED: TETANUS,DIPTH,PERTUSS P/F (BOOSTRIX) 0.5 ML VIAL IM ONE (17:30)
[2021-11-13] MEDS ORDERED: BENZOCAINE/MENTHOL (DERMOPLAST) 56 ML CAN TP PRN (17:30)
[2021-11-13] MEDS ORDERED: MEASLES,MUMPS,RUBELLA 1 EA INJ SQ ONE (17:30)
[2021-11-13] MEDS: IBUPROFEN 600 MG (MOTRIN) TAB PO SCH (18:54)
[2021-11-13] MEDS: DOCUSATE SODIUM 100 MG (COLACE) CAP PO SCH (21:42)
[2021-11-14 00:41] VITALS: BP 115/57
[2021-11-14] MEDS: IBUPROFEN 600 MG (MOTRIN) TAB PO SCH ×3 (00:42→13:10)
[2021-11-14] MEDS: DOCUSATE SODIUM 100 MG (COLACE) CAP PO SCH ×2 (01:21→10:37)
[2021-11-14 05:51] LABS: BASOPHILS # (AUTO) 0.1 10^3/uL (0.0-0.1); BASOPHILS % (AUTO) 1 % (0-10); EOSINOPHILS # (AUTO) 0.4 10^3/uL (0.0-0.3); EOSINOPHILS % (AUTO) 3 % (0-10); HEMATOCRIT 29 % (35-52); HEMOGLOBIN 9.2 g/dL (11.5-16.0); LYMPHOCYTES # (AUTO) 1.9 10^3/uL (1.0-4.0); LYMPHOCYTES % (AUTO) 18 % (12-44); MEAN CORPUSCULAR HEMOGLOBIN 25 pg (25-34); MEAN CORPUSCULAR HGB CONC 31 g/dL (32-36); MEAN CORPUSCULAR VOLUME 79 fL (80-99); MEAN PLATELET VOLUME 9.3 fL (9.0-12.2); MONOCYTES # (AUTO) 0.9 10^3/uL (0.0-1.0); MONOCYTES % (AUTO) 9 % (0-12); NEUTROPHILS # (AUTO) 7.5 10^3/uL (1.8-7.8); NEUTROPHILS % (AUTO) 69 % (42-75); PLATELET COUNT 272 10^3/uL (130-400); WHITE BLOOD COUNT 10.9 10^3/uL (4.3-11.0)
[2021-11-14 06:34] VITALS: BP 118/71
--- NOTE | 2021-11-14 06:49 | Postpartum Progress Note ---
TOMMIE SHEEHAN Obey 11/14/21 0649: Note Note Day # 1 Subjective: Patient is without complaints. Ambulating, voiding. Tolerating a regular diet without nausea or vomiting. Normal lochia. Pain is well controlled with oral pain medications. Breast feeding without complaints. Objective: VSS, afebrile Physical Exam: General - Alert and oriented, no apparent distress Abdomen - Soft, appropriately tender to palpation, non-distended, fundus firm at umbilicus Extremities - no edema, negative Nidhi's bilaterally Assessment: Acute blood loss anemia, post- day # 1, status post vaginal delivery. Recovering well, hemodynamically stable Plan: Routine care. Encourage breast feeding. Encourage ambulation. Ferrous sulfate supplementation. D/C in two days pending on technical account manager and return for follow up in [address] Goetz Vitals - Labs Vital Signs - I&O Vital Signs Date Time Temp Pulse Resp B/P (MAP) Pulse Ox O2 Delivery O2 Flow Rate FiO2 11/14/21 06:34 36.4 82 18 118/71 (87) 98 Room Air 11/14/21 00:41 36.3 85 18 115/57 (76) 96 Room Air 11/13/21 21:20 36.5 98 18 127/66 (86) 96 Room Air 11/13/21 18:33 36.7 96 20 128/58 (81) Room Air 11/13/21 18:18 36.7 93 20 122/57 (78) Room Air 11/13/21 18:03 36.4 96 20 142/64 (90) Room Air 11/13/21 17:48 36.6 94 20 128/61 (83) Room Air 11/13/21 17:34 36.6 95 20 127/59 (81) Room Air 11/13/21 17:18 36.7 88 20 124/58 (80) Room Air 11/13/21 17:05 37.0 96 20 136/60 (85) Room Air 11/13/21 16:50 133 20 151/82 (105) 99 Room Air 11/13/21 16:35 92 20 110/55 (73) 99 Room Air 11/13/21 16:20 86 20 113/59 (77) 100 Room Air 11/13/21 16:05 90 20 112/62 (79) 99 Room Air 11/13/21 15:50 84 20 117/65 (82) 99 Room Air 11/13/21 15:35 85 20 118/57 (77) 99 Room Air 11/13/21 15:20 36.6 81 20 112/61 (78) 99 Room Air 11/13/21 15:05 77 20 98/53 (68) 98 Room Air 11/13/21 14:50 78 20 102/53 (69) 98 Room Air 11/13/21 14:35 86 20 114/66 (82) 96 Room Air 11/13/21 14:20 81 20 108/59 (75) 98 Room Air 11/13/21 14:05 69 20 104/59 (74) 97 Room Air 11/13/21 13:50 68 20 107/59 (75) 99 Room Air 11/13/21 13:35 36.3 94 18 138/60 (86) 98 Room Air 11/13/21 13:20 93 20 115/60 (78) 97 Room Air 11/13/21 13:05 86 20 121/71 (88) 97 Room Air 11/13/21 12:50 75 20 101/53 (69) 96 Room Air 11/13/21 12:35 85 20 122/73 (89) 98 Room Air 11/13/21 12:20 36.2 76 20 126/71 (89) 98 Room Air 11/13/21 12:05 79 20 123/65 (84) 98 Room Air 11/13/21 11:44 87 20 133/72 (92) 98 Room Air 11/13/21 11:40 84 20 134/71 (92) 98 Room Air 11/13/21 11:36 99 20 125/65 (85) 99 Room Air 11/13/21 11:32 99 20 102/67 (79) 99 Room Air 11/13/21 11:28 76 20 103/68 (80) 97 Room Air 11/13/21 11:24 73 20 111/67 (82) 97 Room Air 11/13/21 11:20 77 20 115/61 (79) 97 Room Air 11/13/21 11:16 77 20 114/73 (87) 97 Room Air 11/13/21 11:12 86 20 101/53 (69) 98 Room Air 11/13/21 11:08 80 20 124/65 (84) 98 Room Air 11/13/21 11:04 86 20 120/67 (84) 98 Room Air 11/13/21 11:00 84 20 123/71 (88) 97 Room Air 11/13/21 10:56 88 20 120/70 (87) 97 Room Air 11/13/21 10:52 94 20 117/64 (81) 98 Room Air 11/13/21 10:48 93 20 121/71 (88) 98 Room Air 11/13/21 10:44 85 20 117/69 (85) 98 Room Air 11/13/21 10:40 36.3 83 20 119/68 (85) 99 Room Air 11/13/21 09:40 86 20 112/67 (82) Room Air 11/13/21 09:10 84 20 117/60 (79) Room Air 11/13/21 08:40 100 20 121/76 (91) Room Air 11/13/21 08:10 36.3 100 20 126/74 (91) Room Air 11/13/21 06:49 36.3 93 18 97 Room Air I & O 11/14/21 07:00 Intake Total 2150 ml Balance 2150 ml Labs Laboratory Tests 11/13/21 08:28: White Blood Count 10.4, Red Blood Count 4.09, Hemoglobin 10.1L, Hematocrit 32L, Mean Corpuscular Volume 79L, Mean Corpuscular Hemoglobin 25, Mean Corpuscular Hemoglobin Concent 31L, Red Cell Distribution Width 14.2, Platelet Count 311, Mean Platelet Volume 9.2, Immature Granulocyte % (Auto) 0, Neutrophils (%) (Auto) 75, Lymphocytes (%) (Auto) 14, Monocytes (%) (Auto) 7, Eosinophils (%) (Auto) 3, Basophils (%) (Auto) 0, Neutrophils # (Auto) 7.8, Lymphocytes # (Auto) 1.5, Monocytes # (Auto) 0.8, Eosinophils # (Auto) 0.3, Basophils # (Auto) 0.0, Immature Granulocyte # (Auto) 0.0 11/14/21 05:43: White Blood Count 10.9, Red Blood Count 3.74L, Hemoglobin 9.2L, Hematocrit 29L, Mean Corpuscular Volume 79L, Mean Corpuscular Hemoglobin 25, Mean Corpuscular Hemoglobin Concent 31L, Red Cell Distribution Width 14.3, Platelet Count 272, Mean Platelet Volume 9.3, Immature Granulocyte % (Auto) 0, Neutrophils (%) (Auto) 69, Lymphocytes (%) (Auto) 18, Monocytes (%) (Auto) 9, Eosinophils (%) (Auto) 3, Basophils (%) (Auto) 1, Neutrophils # (Auto) 7.5, Lymphocytes # (Auto) 1.9, Monocytes # (Auto) 0.9, Eosinophils # (Auto) 0.4H, Basophils # (Auto) 0.1, Immature Granulocyte # (Auto) 0.0 TONY GOETZ DO 11/14/21 0826: Note Note Verification and Attestation of Medical Student E/M Service A medical student performed and documented this service in my presence. I reviewed and verified all information documented by the medical student and made modifications to such information, when appropriate. I personally performed the physical exam and medical decision making. Tony Goetz, Nov 14, 2021,08:26 TOMMIE SHEEHAN Nov 14, 2021 06:49 TONY GOETZ DO Nov 14, 2021 08:26
--- NOTE | 2021-11-14 08:31 | Discharge Inst-Women's Service ---
Discharge Inst-Women's Serv Depart Medication/Instructions New, Converted or Re-Newed RX: Transmitted to Pharmacy Final Diagnosis PPD 1 NVD Problems Reviewed?: Yes Consults/Follow Up Additional Follow Up: Yes Orders/Referrals Dr. Goetz in 6 weeks Activity Activity: Activity as Tolerated Driving Instructions: No Driving for 1 Week NO SMOKING: NO SMOKING Nothing Inside Vagina: No Douching, No [place], No Tampons Diet Discharge Diet: No Restrictions Symptoms to Report to : Bleeding Excessive, Pain Increased, Fever Over 101 Degrees F, Vaginal Bleeding Increase, Questions/Concerns For Any Problems or Questions: Contact Your Physician DONALDO GOETZ DO Nov 14, 2021 08:31
[2021-11-14] MEDS ORDERED: IBUP-844 PO (08:32)
[2021-11-14] MEDS ORDERED: DOCU100C37 PO (08:32)
[2021-11-14] MEDS ORDERED: BENZ78AE5 TP (08:32)
[2021-11-14 10:35] VITALS: BP 129/74
[2021-11-14 13:10] VITALS: BP 115/63
--- NOTE | 2021-11-14 13:23 | Anesthesia-Regional Post-Op ---
Regional Patient Condition Mental Status: Alert, Oriented x3 Circulation: Same as Pre-Op Headache: Absent Sensation: Full Recovery Motor Block: Absent Post Op Complications Complications None Follow Up Care/Instructions Patient Instructions None needed. Anesthesia/Patient Condition Patient is doing well, no complaints, stable vital signs, no apparent adverse anesthesia problems. No complications reported per nursing. TROY WAHL CRNA Nov 14, 2021 13:23
[2021-11-14 15:25] VITALS: BP 125/60
== END 2021-11-14 20:15 | disposition home or self-care (01) | DRG 806 ==
LOC: LDRP 06:24 → WSo 06:24 → LDRP 07:04 → WSo 07:04 → LDRP 16:03 → WS 16:03 → LDRP 18:38
PROVIDERS: ADMIT Obstetrics & Gynecology; ATTEND Obstetrics & Gynecology
PROC: 10E0XZZ Delivery of Products of Conception, External Approach (ICD-10-PCS; principal; 2021-11-13)
PROC: 10907ZC Drainage of Amniotic Fluid, Therapeutic from Products of Conception, Via Natural or Artificial Opening (ICD-10-PCS; 2021-11-13)
PROC: 0HQ9XZZ Repair Perineum Skin, External Approach (ICD-10-PCS; 2021-11-13)
PROC: 3E033VJ Introduction of Other Hormone into Peripheral Vein, Percutaneous Approach (ICD-10-PCS; 2021-11-13)
DX: O48.0 Post-term pregnancy (principal); D62 Acute posthemorrhagic anemia; Z37.0 Single live birth; Z3A.40 40 weeks gestation of pregnancy; O99.824 Streptococcus B carrier state complicating childbirth; O77.0 Labor and delivery complicated by meconium in amniotic fluid; O70.0 First degree perineal laceration during delivery; O90.81 Anemia of the puerperium
CPT/HCPCS: 36415; 85025; 86850; 86900; 86901; 99212